=== PATIENT | female | born 1965 | race Two or more races ===

== ENCOUNTER 2018-01-13 05:49 | Day surgery (SDC) | payer MEDICAID ==
[2018-01-13 06:34] LABS: HEMATOCRIT 37.6 % (36.0-47.0); HEMOGLOBIN 12.6 g/dL (12.0-15.5); MEAN CORPUSCULAR HEMOGLOBIN 27.7 pg (27.0-33.4); MEAN CORPUSCULAR HGB CONC 33.6 g/dL (32.0-36.0); MEAN CORPUSCULAR VOLUME 83 fl (80-97); PLATELET COUNT 223 10^3/uL (150-450); RED BLOOD COUNT 4.56 10^6/uL (3.72-5.28); RED CELL DISTRIBUTION WIDTH 13.4 % (11.5-14.0); WHITE BLOOD COUNT 6.1 10^3/uL (4.0-10.5)
[2018-01-13 06:42] LABS: INTERNATIONAL RATION (INR) 0.85
[2018-01-13 06:43] LABS: PARTIAL THROMBOPLASTIN TIME 28.1 SEC (23.5-35.8)
[2018-01-13 07:05] LABS: BLOOD UREA NITROGEN 18 mg/dL (7-20)
[2018-01-13] MEDS ORDERED: FENTANYL CITRATE INJ/PF 100 MCG/2 ML AMPUL ONE (08:19)
[2018-01-13] MEDS ORDERED: MIDAZOLAM 2 MG/2 ML INJ ONE (08:19)
[2018-01-13] MEDS ORDERED: LIDOCAINE 1% INJ-PF (10 MG/ML) 30 ML SDV ONE (08:20)
[2018-01-13] MEDS ORDERED: OXYCODONE-ACETAMINOPHEN 5-325 MG TABLET ONE (10:23)
[2018-01-13] MEDS ORDERED: OXYCODONE-ACETAMINOPHEN 5-325 MG TABLET PO ONE (11:00)
[2018-01-13 12:25] VITALS: BP 116/74
--- NOTE | 2018-01-13 12:36 | RADIOLOGY REPORT (SQ) ---
EXAM DESCRIPTION: CT DRAINAGE RETRO/PERITONEAL COMPLETED DATE/TIME: 01/13/2018 9:29 am REASON FOR STUDY: PSOAS MUSCLE ABSCESS K68.12 PSOAS MUSCLE ABSCESS COMPARISON: Outside MRI TECHNIQUE: After obtaining informed consent and explaining the risks and benefits of conscious sedat ion,the patient agreed to the procedure. The patient was brought to the CT suite and was placed supin e on the CT gurney. The patient was prepped and draped in the usual sterile fashion . Axial images w ere obtained for targeting of theleft psoas mass/abscess. An appropriate access site was selected. IV conscious sedation was administered and physician direction by the registered nurse using 1.5 millig annette of Versed and 100 micrograms of fentanyl. Physiologic monitoring was provided before, during, an d after sedation. The total sedation time was 33 minutes. Documentation face to face time, the performing proceduralist, spent monitoring the patient: 15minute s. Noncontrasted CT of the liver was performed to localize an approach for the left psoas lesion. A pe rcutaneous site was marked. Time out was performed. After skin prep and local lidocaine for skin and deep tissue anesthesia, an 18 gauge needle was used to access the left psoas mass/abscess. There was prompt return of clear straw-colored fluid without odor. 2 aspirates of this lesion were performed, 1 submitted to cytology evaluation, the other subm itted to microbiology Gram stain culture and sensitivity. At this point, an 0.[address] d through the 18 gauge needle, coiling in the left psoas fluid collection. The percutaneous tract wa s dilated with an 8 Burmese and 10 Burmese dilator. A locking 10 Burmese pigtail catheter was placed ov er the guidewire into the left psoas fluid collection. Fluoroscopy post catheter placement demonstra erick that the fluid collection has near completely resolved by the end of the study. No immediate pos tprocedure complications. Total of 3.[address] fluoro was used. 51 CT Fluoroscopic images were obtained and saved to PACS. All CT scanners at this facility use dose modulation, iterative reconstruction, and/or weight based d osing when appropriate to reduce radiation dose to as low as reasonably achievable (ALARA). [facility]: Dose Right [facility]: CareDose [facility]: Dose Right [facility]: Teradose 4D [facility]: GrabCAD RADIATION DOSE: CT Rad equipment meets quality standard of care and radiation dose reduction techniq ues were employed. CTDIvol: 20.4 mGy. DLP: 1098 mGy-cm. mGy. LIMITATIONS: None. FINDINGS: CT guided liver biopsy as detailed above. IMPRESSION: CT GUIDED LEFT PSOAS FLUID COLLECTION DRAINAGE PERFORMED ABOVE. 10 HEBREW LOCKING P IGTAIL CATHETER PLACED INTO THE LEFT PSOAS FLUID COLLECTION, WITH CYTOLOGY AND CULTURES/GRAM STAIN ON THE ASPIRATED FLUID PENDING. NO IMMEDIATE COMPLICATIONS. IV CONSCIOUS SEDATION COMMENT: Patient medication list reviewed:Yes- Quality ID# [id number]:Eligible professional attests to docu menting in the medical record they obtained, updated, or reviewed the patient's current medications.. Quality ID 145: Final reports for procedures using fluoroscopy that document radiation exposure romulo tracy, or exposure time and number of fluorographic images (if radiation exposure indices are not avail able) TECHNICAL DOCUMENTATION: JOB ID: [id number] Quality ID # [id number]: Final reports with documentation of one or more dose reduction techniques (e.g., A utomated exposure control, adjustment of the mA and/or kV according to patient size, use of iterative reconstruction technique) 2010 [employer]- All Rights Reserved Reading location - IP/workstation name: [email or web address]
== END 2018-01-13 12:30 | disposition home or self-care (01) ==
LOC: RAD 05:49
PROVIDERS: ATTEND Orthopaedic Surgery
DX: K68.12 Psoas muscle abscess (principal); M25.551 Pain in right hip; C49.9 Malignant neoplasm of connective and soft tissue, unspecified; F17.210 Nicotine dependence, cigarettes, uncomplicated; E66.3 Overweight; Z68.27 Body mass index [BMI] 27.0-27.9, adult; Z79.891 Long term (current) use of opiate analgesic
CPT/HCPCS: 36415; 87205; 87070; 84520; 82565; 85027; 85610; 85730; 87075; 88162; 88342 ×2; 88341 ×2; 88305 ×2; 49406; C1729; C1894 ×2; J2250; J3010; J3490

== ENCOUNTER 2018-01-17 16:40 | Emergency (ER) | payer MEDICAID ==
[2018-01-17] MEDS ORDERED: OXYCODONE-ACETAMINOPHEN 5-325 MG TABLET PO ONE (17:13)
--- NOTE | 2018-01-17 17:14 | ER Document Report ---
ED Medical Screen (RME) - General Chief Complaint: Post Surgical Pain Stated Complaint: POST SURGICAL COMPLICATION Time Seen by Provider: 01/17/18 16:55 Notes: 52-year-old female to emergency department for evaluation of left lower quadrant pain and drainage. Patient was diagnosed recently with some sort of malignancy. Had a drainage catheter placed by radiology. States that it has been leaking over the last couple of days and worsening pain. Was told to come here if there were any complications. Patient denies any fever, chills, sweats or other issues at this time. I have greeted and performed a rapid initial assessment of this patient. A comprehensive ED assessment and evaluation of the patient, analysis of test results and completion of the medical decision making process will be conducted by additional ED providers. TRAVEL OUTSIDE OF THE [place] IN LAST 30 DAYS: No - Related Data Allergies/Adverse Reactions: No Known Allergies Allergy (Verified 01/17/18 16:40) Past Medical History - Social History Chew tobacco use (# tins/day): No Frequency of alcohol use: None Drug Abuse: None - Past Medical History Cardiac Medical History: Denies: Hx Coronary Artery Disease, Hx Heart Attack, Hx Hypertension Pulmonary Medical History: Denies: Hx Asthma, Hx Bronchitis, Hx COPD, Hx Pneumonia Neurological Medical History: Denies: Hx Cerebrovascular Accident, Hx Seizures Renal/ Medical History: Denies: Hx Peritoneal Dialysis Musculoskeltal Medical History: Denies Hx Arthritis Past Surgical History: Reports: Hx Appendectomy, Hx Cholecystectomy, Hx Tubal Ligation - Immunizations Hx Diphtheria, Pertussis, Tetanus Vaccination: No History of Influenza Vaccine for 12/2016 - 05/2017 Season: No Physical Exam - Vital signs Vitals: Temp Pulse Resp BP Pulse Ox 97.7 F 96 18 115/74 96 01/17/18 16:46 01/17/18 16:46 01/17/18 16:46 01/17/18 16:46 01/17/18 16:46 Course - Vital Signs Vital signs: Temp Pulse Resp BP Pulse Ox 97.7 F 96 18 115/74 96 01/17/18 16:46 01/17/18 16:46 01/17/18 16:46 01/17/18 16:46 01/17/18 16:46 Doctor's Discharge - Discharge Referrals: MAURICIO ORELLANA NP [Primary Care Provider] - Follow up as needed
[2018-01-17 17:30] LABS: ABSOLUTE BASOPHILS # (AUTO) 0.1 10^3/uL (0.0-0.2); ABSOLUTE EOSINOPHILS # (AUTO) 0.4 10^3/uL (0.0-0.6); ABSOLUTE MONOCYTES (AUTO) 0.4 10^3/uL (0.1-1.4); ABSOLUTE NEUT (AUTO) 4.1 10^3/uL (1.7-8.2); BASOPHILS % (AUTO) 1.4 % (0-2); HEMOGLOBIN 13.6 g/dL (12.0-15.5); LYMPHOCYTES % (AUTO) 28.8 % (13-45); MEAN CORPUSCULAR HEMOGLOBIN 27.7 pg (27.0-33.4); MEAN CORPUSCULAR HGB CONC 33.9 g/dL (32.0-36.0); MEAN CORPUSCULAR VOLUME 82 fl (80-97); MONOCYTES % (AUTO) 6.3 % (3-13); PLATELET COUNT 307 10^3/uL (150-450); RED CELL DISTRIBUTION WIDTH 13.9 % (11.5-14.0); SEGMENTED NEUTROPHILS % (AUTO) 58.5 % (42-78); TOTAL CELLS COUNTED % (AUTO) 100 %; WHITE BLOOD COUNT 7.1 10^3/uL (4.0-10.5)
[2018-01-17 17:45] LABS: ALANINE AMINOTRANSFERASE 42 U/L (9-52); ALKALINE PHOSPHATASE 87 U/L (38-126); ANION GAP 12 (5-19); ASPARTATE AMINO TRANSFERASE 27 U/L (14-36); BILIRUBIN,DIRECT 0.2 mg/dL (0.0-0.4); BILIRUBIN,TOTAL 0.2 mg/dL (0.2-1.3); BLOOD UREA NITROGEN 16 mg/dL (7-20); CALCIUM 9.5 mg/dL (8.4-10.2); CARBON DIOXIDE 30 mmol/L (22-30); CHLORIDE 101 mmol/L (98-107); GLUCOSE 98 mg/dL (75-110); POTASSIUM 4.5 mmol/L (3.6-5.0); SODIUM 142.8 mmol/L (137-145); TOTAL PROTEIN 6.9 g/dL (6.3-8.2)
--- NOTE | 2018-01-17 17:53 | ER Document Report ---
ED General - General Chief Complaint: Post Surgical Pain Stated Complaint: POST SURGICAL COMPLICATION Time Seen by Provider: 01/17/18 16:55 Mode of Arrival: Ambulatory Information source: Patient Notes: 52-year-old female presents emergency department with complaints of drainage from a pigtail drain that was placed on 01/13/18 by interventional radiology. Patient had a CT guided left psoas fluid collection drainage. A 10 Kinyarwanda locking pigtail catheter was placed into the left psoas fluid collection. Cytology and Gram stain/cultures were sent. Patient states that she was contacted by Dr. Prajapati who ordered this study and was told that there is possible malignancy. Patient has an appointment with oncology on Friday. Patient states that today she began noticing some clear fluid draining from the pigtail site over the last few days. Patient denies any fever, chills, abdominal pain. Patient is coming in for evaluation . TRAVEL OUTSIDE OF THE [place] IN LAST 30 DAYS: No - HPI Onset: Last week Onset/Duration: Gradual Quality of pain: No pain Associated symptoms: None Exacerbated by: Denies Relieved by: Denies Similar symptoms previously: No Recently seen / treated by doctor: Yes - Related Data Allergies/Adverse Reactions: No Known Allergies Allergy (Verified 01/17/18 16:40) Past Medical History - General Information source: Patient - Social History Smoking Status: Current Every Day Smoker Chew tobacco use (# tins/day): No Frequency of alcohol use: None Drug Abuse: None Family History: Reviewed & Not Pertinent Patient has suicidal ideation: No Patient has homicidal ideation: No - Past Medical History Cardiac Medical History: Denies: Hx Coronary Artery Disease, Hx Heart Attack, Hx Hypertension Pulmonary Medical History: Denies: Hx Asthma, Hx Bronchitis, Hx COPD, Hx Pneumonia Neurological Medical History: Denies: Hx Cerebrovascular Accident, Hx Seizures Renal/ Medical History: Denies: Hx Peritoneal Dialysis Musculoskeletal Medical History: Denies Hx Arthritis Past Surgical History: Reports: Hx Appendectomy, Hx Cholecystectomy, Hx Tubal Ligation - Immunizations Hx Diphtheria, Pertussis, Tetanus Vaccination: No Review of Systems - Review of Systems Constitutional: No symptoms reported EENT: No symptoms reported Cardiovascular: No symptoms reported Respiratory: No symptoms reported Gastrointestinal: No symptoms reported Genitourinary: No symptoms reported Female Genitourinary: No symptoms reported Musculoskeletal: No symptoms reported Skin: No symptoms reported Hematologic/Lymphatic: No symptoms reported Neurological/Psychological: No symptoms reported -: Yes All other systems reviewed and negative Physical Exam - Vital signs Vitals: Temp Pulse Resp BP Pulse Ox 97.7 F 96 18 115/74 96 01/17/18 16:46 01/17/18 16:46 01/17/18 16:46 01/17/18 16:46 01/17/18 16:46 - Notes Notes: PHYSICAL EXAMINATION: GENERAL: Well-appearing, well-nourished and in no acute distress. HEAD: Atraumatic, normocephalic. EYES: Pupils equal round and reactive to light, extraocular movements intact, conjunctiva are normal. ENT: Nares patent, oropharynx clear without exudates. Moist mucous membranes. NECK: Normal range of motion, supple without lymphadenopathy LUNGS: Breath sounds clear to auscultation bilaterally and equal. No wheezes rales or rhonchi. HEART: Regular rate and rhythm without murmurs ABDOMEN: Soft, nontender, nondistended abdomen. No guarding, no rebound. Pigtail drain in the LLQ. No drainage appreciated in the ED. Contact dermatitis seen from the tape surrounding the drain. No signs of infection. Female : deferred Musculoskeletal: Normal range of motion, no pitting or edema. No cyanosis. NEUROLOGICAL: Cranial nerves grossly intact. Normal speech, normal gait. Normal sensory, motor exams PSYCH: Normal mood, normal affect. SKIN: Warm, Dry, normal turgor, no rashes or lesions noted. Course - Re-evaluation Re-evalutation: 01/17/18 17:45 WBC normal. No history of fever. I spoke with Dr. Mahajan who is dermatology nurse practitioner for Dr. Prajapati. Unable to get IR to replace drain over the weekend. He recommends having the patient do frequent dressing changes and following up with Dr. Prajapati on Friday. He thinks that she'll need to go back to IR on Friday. 01/17/18 18:06 Dr. Fischer's note states that the patient has been having worsening abdominal pain. I addressed worsening abdominal pain with the patient. She denies this. Says she is concerned about the drainage from the site. I told the patient is she was having worsening abdominal pain, imaging would be necessary to evaluate this. Patient does not want imaging. Says that she's here just for the drainage. - Vital Signs Vital signs: Temp Pulse Resp BP Pulse Ox 97.8 F 82 16 119/81 96 01/17/18 18:35 01/17/18 18:35 01/17/18 18:35 01/17/18 18:35 01/17/18 18:35 - Laboratory Result Diagrams: 01/17/18 17:18 01/17/18 17:18 Laboratory results interpreted by me: 01/17/18 17:18 Creatinine 0.51 L Discharge - Discharge Clinical Impression: Visit for wound check, Drainage from wound Condition: Good Disposition: HOME, SELF-CARE Instructions: Dressing Instructions for Open Wounds ([facility]), Wound Infection ([facility] ) Additional Instructions: Follow up with oncology Friday as scheduled. If site continues to leak, you will need to have interventional radiology evaluate the drain. If you have fevers, chills, redness to the site go to the emergency department immediately. Referrals: MAURICIO ORELLANA, FOOD QUALITY TECHNICIAN [Primary Care Provider] - Follow up as needed
[2018-01-17 18:50] VITALS: BP 119/81
== END 2018-01-17 18:50 | disposition home or self-care (01) ==
LOC: ER 16:40
DX: G89.18 Other acute postprocedural pain (principal); F17.200 Nicotine dependence, unspecified, uncomplicated; Z90.49 Acquired absence of other specified parts of digestive tract; Z98.51 Tubal ligation status
CPT/HCPCS: 36415; 80053; 85025; 99283

== ENCOUNTER → 2018-01-28 | Outpatient (CLI) | payer MEDICAID ==
--- NOTE | 2018-01-28 10:26 | RADIOLOGY REPORT (SQ) ---
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 TECHNIQUE: CT scan of the chest performed using helical scanning technique with dynamic intravenous contrast injection. Images reviewed with lung, soft tissue and bone windows. Reconstructed coronal a nd sagittal MPR images reviewed. All images stored on PACS. CT scan of the abdomen and pelvis performed with intravenous and with oral contrastusing helical scan abril technique with dynamic intravenous contrast injection. Images reviewed with lung, soft tissue a nd bone windows. Reconstructed coronal and sagittal MPR images reviewed. Delayed images for evaluat ion of the urinary system also acquired and evaluated. All images stored on PACS. All CT scanners at this facility use dose modulation, iterative reconstruction, and/or weight based d osing when appropriate to reduce radiation dose to as low as reasonably achievable (ALARA). [facility]: Dose Right [facility]: CareDose [facility]: Dose Right [facility]: Teradose 4D [facility]: Smart [employer] RADIATION DOSE: CT Rad equipment meets quality standard of care and radiation dose reduction techniq ues were employed. CTDIvol: 5.5 - 10.7 mGy. DLP: 1390 mGy-cm. . LIMITATIONS: None. FINDINGS: CHEST: LUNGS AND PLEURA: No opacities, nodules, masses. No pneumothorax. No effusions. HILAR AND MEDIASTINAL STRUCTURES: No identified masses or abnormal nodes. HEART AND VASCULAR STRUCTURES: No aneurysm or dissection. No central pulmonary emboli. No pericardi al effusion. HARDWARE: None. THYROID AND OTHER SOFT TISSUES: No masses. No adenopathy. BONES: No significant finding. OTHER: No other significant finding. ABDOMEN AND PELVIS: LIVER: Normal size, low-attenuation from diffuse fatty infiltration. No dilated ducts. No focal mas ses SPLEEN: Normal size. No focal lesions. PANCREAS: No masses. No significant calcifications. No adjacent inflammation or peripancreatic fluid collections. Pancreatic duct not dilated. GALLBLADDER: Surgically absent ADRENAL GLANDS: No significant masses or asymmetry. RIGHT KIDNEY AND URETER: No solid masses. No significant calcification. No hydronephrosis or hydroure ter. LEFT KIDNEY AND URETER: No solid masses. No significant calcification. No hydronephrosis or hydrouret er. AORTA: No abdominal aortic aneurysm or dissection RETROPERITONEUM: There is re-accumulation of fluid within the left psoas muscle cystic metastatic les ion from squamous cell carcinoma. On today's study, this measures 5.4 x 4 cm in size (was 6.5 x 6 cm on 01/13/2018 pre drainage/aspiration). The left external iliac artery is encased by the mass, with at least 50% diameter stenosis of the left external iliac artery, best shown on coronal reconstructi on image 52, and axial images 67 through 74. Segmental thrombosis of the adjacent left external fe c vein may be present. BOWEL AND PERITONEAL CAVITY: Patient drank oral contrast. No CT evidence of bowel obstruction or merle e intraperitoneal air or fluid. No diverticuli in the colon APPENDIX: Surgically absent ABDOMINAL WALL: No masses. No hernias. PELVIS: An abnormally enlarged left obturator lymph node is present, 3 x 2 cm on axial image 80. An enlarged left external iliac lymph node at the level of the left internal inguinal ring is present, 2 .5 x 1.3 cm in size on axial image 79. Normal size female pelvic organs with old bilateral tubal occ lusion clips BONES: No significant or acute findings. OTHER: No other significant finding. IMPRESSION: No CT evidence of metastatic disease to the chest Re-accumulation of fluid within a cystic squamous cell carcinoma metastatic lesion, inferior left pso as muscle with adjacent narrowing of the left external iliac artery and probable short segmental thro mbosis of the left external iliac vein. Enlarged left obturator and external iliac lymph nodes. TECHNICAL DOCUMENTATION: JOB ID: [id number] Quality ID # 436: Final reports with documentation of one or more dose reduction techniques (e.g., Au tomated exposure control, adjustment of the mA and/or kV according to patient size, use of iterative reconstruction technique) 2010 [employer]- All Rights Reserved Reading location - IP/workstation name: [email or web address]
== END ==
LOC: RAD 08:50
PROVIDERS: ATTEND Internal Medicine Hematology & Oncology
DX: C44.529 Squamous cell carcinoma of skin of other part of trunk (principal)
CPT/HCPCS: 71260; 74177

== ENCOUNTER 2018-05-14 12:33 | Emergency (ER) | payer MEDICAID ==
[2018-05-14] MEDS ORDERED: NORMAL SALINE 1000 ML 1,000 ML IV ONE ×2 (12:46→18:27)
[2018-05-14 13:00] LABS: ABSOLUTE BASOPHILS # (AUTO) 0.1 10^3/uL (0.0-0.2); ABSOLUTE EOSINOPHILS # (AUTO) 0.1 10^3/uL (0.0-0.6); ABSOLUTE LYMPHOCYTES (AUTO) 1.4 10^3/uL (0.5-4.7); ABSOLUTE MONOCYTES (AUTO) 0.3 10^3/uL (0.1-1.4); ABSOLUTE NEUT (AUTO) 12.9 10^3/uL (1.7-8.2); BASOPHILS % (AUTO) 0.5 % (0-2); EOSINOPHILS % (AUTO) 0.6 % (0-6); HEMATOCRIT 39.8 % (36.0-47.0); HEMOGLOBIN 13.1 g/dL (12.0-15.5); LYMPHOCYTES % (AUTO) 9.3 % (13-45); MEAN CORPUSCULAR HEMOGLOBIN 24.9 pg (27.0-33.4); MEAN CORPUSCULAR HGB CONC 32.8 g/dL (32.0-36.0); MEAN CORPUSCULAR VOLUME 76 fl (80-97); MONOCYTES % (AUTO) 2.2 % (3-13); PLATELET COUNT 354 10^3/uL (150-450); RED BLOOD COUNT 5.24 10^6/uL (3.72-5.28); RED CELL DISTRIBUTION WIDTH 16.4 % (11.5-14.0); SEGMENTED NEUTROPHILS % (AUTO) 87.4 % (42-78); TOTAL CELLS COUNTED % (AUTO) 100 %; WHITE BLOOD COUNT 14.7 10^3/uL (4.0-10.5)
[2018-05-14 13:02] LABS: INTERNATIONAL RATION (INR) 1.09; PROTHROMBIN TIME 14.7 SEC (11.4-15.4)
[2018-05-14 13:13] LABS: ALANINE AMINOTRANSFERASE 15 U/L (9-52); ALBUMIN 3.3 g/dL (3.5-5.0); ALKALINE PHOSPHATASE 149 U/L (38-126); ANION GAP 9 (5-19); ASPARTATE AMINO TRANSFERASE 26 U/L (14-36); BILIRUBIN,DIRECT 0.4 mg/dL (0.0-0.4); BILIRUBIN,TOTAL 0.6 mg/dL (0.2-1.3); BLOOD UREA NITROGEN 13 mg/dL (7-20); CALCIUM 8.9 mg/dL (8.4-10.2); CARBON DIOXIDE 29 mmol/L (22-30); CHLORIDE 99 mmol/L (98-107); GLUCOSE 151 mg/dL (75-110); POTASSIUM 4.2 mmol/L (3.6-5.0); SODIUM 136.8 mmol/L (137-145); TOTAL PROTEIN 6.3 g/dL (6.3-8.2)
--- NOTE | 2018-05-14 13:54 | EKG REPORT ---
SEVERITY:- OTHERWISE NORMAL ECG - SINUS TACHYCARDIA : Confirmed by: Darrel Evans MD 14-May-2018 13:52:54
--- NOTE | 2018-05-14 13:54 | RADIOLOGY REPORT (SQ) ---
EXAM DESCRIPTION: CT HEAD WITHOUT COMPLETED DATE/TIME: 05/14/2018 1:32 pm REASON FOR STUDY: hypoxia COMPARISON: None. TECHNIQUE: Axial images acquired through the brain without intravenous contrast. Images reviewed wi th bone, brain and subdural windows. Additional sagittal and coronal reconstructions were generated. Images stored on PACS. All CT scanners at this facility use dose modulation, iterative reconstruction, and/or weight based d osing when appropriate to reduce radiation dose to as low as reasonably achievable (ALARA). [facility]: Dose Right [facility]: CareDose [facility]: Dose Right [facility]: Teradose 4D [facility]: [employer] RADIATION DOSE: CT Rad equipment meets quality standard of care and radiation dose reduction techniq ues were employed. CTDIvol: 53.2 mGy. DLP: 991 mGy-cm. mGy. LIMITATIONS: None. FINDINGS: VENTRICLES: Normal size and contour. CEREBRUM: No masses. No hemorrhage. No midline shift. No evidence for acute infarction. Normal gra y/white matter differentiation. No areas of low density in the white matter. CEREBELLUM: No masses. No hemorrhage. No alteration of density. No evidence for acute infarction. EXTRAAXIAL SPACES: No fluid collections. No masses. ORBITS AND GLOBE: No intra- or extraconal masses. Normal contour of globe without masses. CALVARIUM: No fracture. PARANASAL SINUSES: No fluid or mucosal thickening. SOFT TISSUES: Multiple calcified scalp nodules. OTHER: No other significant finding. IMPRESSION: NORMAL BRAIN CT WITHOUT CONTRAST. MULTIPLE CALCIFIED SCALP NODULES WHICH MAY BE NUMEROUS SEBACEOUS CYSTS OR OTHER DERMATOLOGIC LESIONS. EVIDENCE OF ACUTE STROKE: NO. COMMENT: Quality ID # 436: Final reports with documentation of one or more dose reduction techniques (e.g., Automated exposure control, adjustment of the mA and/or kV according to patient size, use of iterative reconstruction technique) TECHNICAL DOCUMENTATION: JOB ID: [id number] [employer]- All Rights Reserved Reading location - IP/workstation name: [email or web address]
--- NOTE | 2018-05-14 14:08 | RADIOLOGY REPORT (SQ) ---
EXAM DESCRIPTION: CHEST SINGLE VIEW COMPLETED DATE/TIME: 05/14/2018 2:00 pm REASON FOR STUDY: hypoxia COMPARISON: None. EXAM PARAMETERS: NUMBER OF VIEWS: One view. TECHNIQUE: Single frontal radiographic view of the chest acquired. RADIATION DOSE: NA LIMITATIONS: None. FINDINGS: LUNGS AND PLEURA: No opacities, masses or pneumothorax. No pleural effusion. MEDIASTINUM AND HILAR STRUCTURES: No masses. Contour normal. HEART AND VASCULAR STRUCTURES: Heart normal in size. Normal vasculature. BONES: No acute findings. HARDWARE: None in the chest. OTHER: No other significant finding. IMPRESSION: NO ACUTE RADIOGRAPHIC FINDING IN THE CHEST. TECHNICAL DOCUMENTATION: JOB ID: [id number] 2042 [email or web address]- All Rights Reserved Reading location - IP/workstation name: [email or web address]
[2018-05-14 15:02] LABS: VENOUS BLOOD BASE EXCESS 2.2 mmol/L; VENOUS BLOOD HCO3 28.1 mmol/L (20-32); VENOUS BLOOD PCO2 49.5 mmHg (35-63); VENOUS BLOOD PH 7.37 (7.30-7.42)
[2018-05-14] MEDS ORDERED: FENTANYL CITRATE INJ/PF 100 MCG/2 ML AMPUL IV ONE (15:58)
[2018-05-14 17:19] LABS: APPEARANCE,URINE SLIGHTLY-CLOUDY; BILIRUBIN,URINE NEGATIVE (NEGATIVE); COLOR,URINE YELLOW; GLUCOSE, URINE NEGATIVE (NEGATIVE); KETONES,URINE NEGATIVE (NEGATIVE); LEUKOCYTE ESTERASE,URINE NEGATIVE (NEGATIVE); NITRITE,URINE NEGATIVE (NEGATIVE); PROTEIN,URINE NEGATIVE (NEGATIVE); URINE SPECIFIC GRAVITY 1.012; UROBILINOGEN,URINE NEGATIVE mg/dL (<2.0)
--- NOTE | 2018-05-14 18:08 | RADIOLOGY REPORT (SQ) ---
EXAM DESCRIPTION: CT ABD/PELVIS WITH IV ONLY COMPLETED DATE/TIME: 05/14/2018 5:45 pm REASON FOR STUDY: hypotension, abd pain, metastatic cancer COMPARISON: 01/28/2018 TECHNIQUE: CT scan of the abdomen and pelvis performed using helical scanning technique with dynamic intravenous contrast injection. No oral contrast. Images reviewed with lung, soft tissue, and bone windows. Reconstructed coronal and sagittal MPR images reviewed. Delayed images for evaluation of the urinary system also acquired. All images stored on PACS. All CT scanners at this facility use dose modulation, iterative reconstruction, and/or weight based d osing when appropriate to reduce radiation dose to as low as reasonably achievable (ALARA). [facility]: Dose Right [facility]: CareDose [facility]: Dose Right [facility]: Teradose 4D [facility]: [employer] CONTRAST TYPE AND DOSE: contrast/concentration: Isovue 350.00 mg/ml; Total Contrast Delivered: 75.0 ml; Total Saline Delivered: 67.0 ml 75 mL Omnipaque 350- low osmolar. RENAL FUNCTION: Creatinine 0.74 RADIATION DOSE: CT Rad equipment meets quality standard of care and radiation dose reduction techniq ues were employed. CTDIvol: 9.3 - 13.1 mGy. DLP: 1406 mGy-cm.. LIMITATIONS: None. FINDINGS: LOWER CHEST: No significant findings. No nodules or infiltrates. LIVER: Normal size. No masses. No dilated ducts. SPLEEN: Normal size. No focal lesions. PANCREAS: No masses. No significant calcifications. No adjacent inflammation or peripancreatic fluid collections. Pancreatic duct not dilated. GALLBLADDER: Surgically absent. ADRENAL GLANDS: No significant masses or asymmetry. RIGHT KIDNEY AND URETER: No solid masses. No significant calcifications. No hydronephrosis or hyd roureter. LEFT KIDNEY AND URETER: No solid masses. No significant calcifications. No hydronephrosis or hydr oureter. AORTA AND VESSELS: No aneurysm. No dissection. Renal arteries, SMA, celiac without stenosis. RETROPERITONEUM: Reaccumulation of fluid within the large left psoas muscle cystic metastatic lesion that currently measures 9.4 by 8.8 cm compared to 5.4 x 4.0 cm on the previous study. Pigtail cathet er is present with the distal portion along the lateral wall of the cystic mass. May need reposition ing or flushing for drainage. Anterior to the insertion site of the drainage catheter involving the subcutaneous tissue of the anterolateral abdominal wall there is a 9.2 x 6.5 cm relatively well-defin ed collection of fluid. Appears to be separate from the psoas collection. BOWEL AND PERITONEAL CAVITY: No masses or inflammatory changes. No free fluid or peritoneal masses. APPENDIX: Normal. PELVIS: No mass. No free fluid. Normal bladder. ABDOMINAL WALL: No masses. No hernias. BONES: No significant or acute findings. OTHER: No other significant finding. IMPRESSION: Reaccumulation and increase in size of the psoas muscle cystic metastatic lesion. See above discussion. New large walled off collection of fluid involving the subcutaneous tissue in clos e proximity to the drainage catheter. Other previously described findings are stable. TECHNICAL DOCUMENTATION: JOB ID: [id number] Quality ID # 436: Final reports with documentation of one or more dose reduction techniques (e.g., Au tomated exposure control, adjustment of the mA and/or kV according to patient size, use of iterative reconstruction technique) 2010 [employer]- All Rights Reserved Reading location - IP/workstation name: [email or web address]
--- NOTE | 2018-05-14 20:33 | ER Document Report ---
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 EMS states during chemotherapy this morning, the patient became red, flushed and anxious and was given 50 Benadryl and 2 At kane. She then became altered was sent to the ED. states the patient had similar symptoms at her last chemotherapy appointment with subsequent change to her chemo medication. He states at that time she was given Benadryl but not Ativan Ativan and had altered mental status, however, she is more altered today. He also reports her to have chronic hypotension, usually running in the 80-90s systolic. EMS reports an oxygen saturation rate of 82%, a lactic acid of 3.8 and a blood pressure of 60/50. TRAVEL OUTSIDE OF THE [place] IN LAST 30 DAYS: No - Related Data Allergies/Adverse Reactions: morphine Allergy (Verified 05/14/18 13:29) Past Medical History - General Information source: Relative, Emergency Med Personnel - Social History Smoking Status: Unknown if Ever Smoked Chew tobacco use (# tins/day): No Frequency of alcohol use: None Drug Abuse: None Family History: Reviewed & Not Pertinent Patient has suicidal ideation: No Patient has homicidal ideation: No Past Surgical History: Reports: Hx Appendectomy, Hx Cholecystectomy, Hx Tubal Ligation - Immunizations Hx Diphtheria, Pertussis, Tetanus Vaccination: No Review of Systems - Review of Systems Constitutional: No symptoms reported EENT: No symptoms reported Cardiovascular: No symptoms reported Respiratory: No symptoms reported Gastrointestinal: No symptoms reported Genitourinary: No symptoms reported Female Genitourinary: No symptoms reported Musculoskeletal: No symptoms reported Skin: No symptoms reported Hematologic/Lymphatic: No symptoms reported Neurological/Psychological: See HPI -: Yes All other systems reviewed and negative Physical Exam - Vital signs Vitals: Pulse Resp Pulse Ox 124 H 16 87 L 05/14/18 12:40 05/14/18 12:40 05/14/18 12:40 Interpretation: Hypotensive, Tachycardic, Hypoxic - Notes Notes: GENERAL: Somnolent, follows commands to open eyes but will not follow commands to squeeze my fingers, opens and closes eyes, does not answer questions. Withdraws from painful stimuli. HEAD: Normocephalic, atraumatic. EYES: Pupils equal, round, and reactive to light. Extraocular movements intact. ENT: Oral mucosa moist, tongue midline. NECK: Full range of motion. Supple. Trachea midline. LUNGS: Clear to auscultation bilaterally, no wheezes, rales, or rhonchi. No respiratory distress but the pulse oximeter does reveal pulse oximeter of 88% on room air with good waveform, this is hypoxic per my interpretation. HEART: Tachycardic, regular rhythm. No murmurs, gallops, or rubs. ABDOMEN: Soft, diffuse abdominal tenderness to palpation worst in the right lower quadrant, no guarding, rigidity, or rebound. Fluctuant mass on the left lower abdomen, lateral psoas muscles, drain coming from mass, actively draining serosanguineous and purulent discharge. Bowel sounds present in all 4 quadrants. EXTREMITIES: Moves all 4 extremities spontaneously. NEUROLOGICAL: Somnolent, follows commands, does not answer questions. Withdraws from painful stimuli. PSYCH: Somnolent, follows commands, does not answer questions. SKIN: Warm, dry, normal turgor. Stage II decubitus ulcer to the right hip. No signs of surrounding infection. Course - Re-evaluation Re-evalutation: 05/14/18 19:15 CBC shows leukocytosis at 14.7, there is no anemia, platelets are normal, INR slightly extended at 1.09, venous blood gas grossly unremarkable, CMP shows slightly low sodium 136.8, glucose normal, lactic acid 0.6. Total and direct bilirubin normal, urinalysis unremarkable, CT scan of the head does not show any acute intracranial process, chest x-ray shows no acute process. CT scan of the abdomen and pelvis shows reaccumulation increase in the size of the psoas muscle cystic metastatic lesion as well as a new walled off collection of fluid involving the subcutaneous tissue in close proximity to the drainage catheter. When this was discussed with Dr. Alanis as well as with the patient and her they stated that that was actually a balloon placed to keep the needle in place in the other fluid collection. Patient Ulises flushes the catheter at home. Patient's pain is not in this location so I doubt the pain is related to this reaccumulation of fluid. Patient is feeling much better. Patient appears to have had an adverse reaction to the chemotherapy and then was overly sedated from the 50 of Benadryl and 2 of Ativan that she received. Patient will be discharged to home and follow-up with Dr. Alanis. 05/14/18 20:33 Intermittent hypotension improved quite well with fluid boluses and her heart rate decreased. Patient has chronic hypotension which is documented both by the and by records from oncology office. - Vital Signs Vital signs: Temp Pulse Resp BP Pulse Ox 98.4 F 98 19 90/56 L 100 05/14/18 13:55 05/14/18 16:34 05/14/18 19:01 05/14/18 19:01 05/14/18 19:01 - Laboratory Result Diagrams: 05/14/18 12:40 05/14/18 12:40 Laboratory results interpreted by me: 05/14/18 05/14/18 05/14/18 12:40 12:40 14:46 WBC 14.7 H MCV 76 L MCH 24.9 L RDW 16.4 H Seg Neutrophils % 87.4 H Lymphocytes % 9.3 L Monocytes % 2.2 L Absolute Neutrophils 12.9 H Sodium 136.8 L Glucose 151 H Lactic Acid 0.6 L Alkaline Phosphatase 149 H Albumin 3.3 L - EKG Interpretation by Me Additional EKG results interpreted by me: 05/14/18 19:15 EKG shows sinus tachycardia at a rate of 121, no ST segment elevations or depressions, no T wave inversions, normal axis, normal intervals per my interpretation. Critical Care Note - Critical Care Note Total time excluding time spent on procedures (mins): 45 Discharge - Discharge Clinical Impression: Sedation from benzodiazepines Chemotherapy adverse reaction Qualifiers: Encounter type: initial encounter Qualified Code(s): T45.1X5A - Adverse effect of antineoplastic and immunosuppressive drugs, initial encounter Condition: Stable Disposition: HOME, SELF-CARE Additional Instructions: Please continue to flush the balloon at home. Today we did not find any signs of infection in your abdomen. There were no signs of infection in your urine. Please continue to follow-up with Dr. Verdugo as an outpatient. Referrals: JITENDRA CASTILLO MD [Primary Care Provider] - Follow up as needed YANG VERDUGO MD [ACTIVE STAFF] - Follow up as needed I personally performed the services described in the documentation, reviewed and edited the documentation which was dictated to the scribe in my presence, and it accurately records my words and actions.
[2018-05-14 20:34] VITALS: BP 86/59
== END 2018-05-14 20:35 | disposition home or self-care (01) ==
LOC: ER 12:33
DX: F13.99 Sedative, hypnotic or anxiolytic use, unspecified with unspecified sedative, hypnotic or anxiolytic-induced disorder (principal); T45.1X5A Adverse effect of antineoplastic and immunosuppressive drugs, initial encounter; C79.82 Secondary malignant neoplasm of genital organs; R41.82 Altered mental status, unspecified; Z88.6 Allergy status to analgesic agent; T78.40XA Allergy, unspecified, initial encounter
CPT/HCPCS: 93005; 99291; 96361; 51701; 96374; 36415; 87040; 87086; 84703; 85025; 85610; 80053; 81001; 82803; 83605; 71045; 70450; 74177; 93010; J3010; J7030